=== PATIENT | male | born 1995 | race Caucasian/White ===

== ENCOUNTER 2023-08-07 15:04 | Emergency (ER) | payer SELFPAY ==
[~2023-08-07] VITALS: Ht 180.3 cm; Wt 82.0 kg
[2023-08-07 15:06] VITALS: BP 119/73; O2SAT 97
[2023-08-07] MEDS ORDERED: IBUP-2030 MT (16:28)
[2023-08-07 16:35] VITALS: PULSE 82; RESP 16; TEMP 98
== END 2023-08-07 16:36 | disposition home or self-care (01) ==
LOC: ER 15:16
DX: M25.562 Pain in left knee (principal); M25.561 Pain in right knee; V98.8XXA Other specified transport accidents, initial encounter; Y93.89 Activity, other specified; Y92.89 Other specified places as the place of occurrence of the external cause; Y99.8 Other external cause status
CPT/HCPCS: 99282